=== PATIENT | male | born 1995 | race Caucasian/White ===

== ENCOUNTER 2017-04-09 16:35 | Emergency (ER) | payer OTHER ==
[~2017-04-09] VITALS: Ht 170.2 cm; Wt 63.5 kg
[2017-04-09 17:16] VITALS: BP 152/49
== END 2017-04-09 17:17 | disposition home or self-care (01) ==
LOC: M.ERS 16:35
DX: S16.1XXA Strain of muscle, fascia and tendon at neck level, initial encounter (principal); F10.99 Alcohol use, unspecified with unspecified alcohol-induced disorder; V49.49XA Driver injured in collision with other motor vehicles in traffic accident, initial encounter; Y93.E6 Activity, residential relocation; Y92.59 Other trade areas as the place of occurrence of the external cause; Y99.8 Other external cause status